=== PATIENT | female | born 1980 | race Caucasian/White ===

== ENCOUNTER → 2020-02-19 | Outpatient (CLI) | payer BC | END | disposition home or self-care (01) | LOC: RADMRIMAIN 09:40 | PROVIDERS: ATTEND Otolaryngology | DX: Z53.9 Procedure and treatment not carried out, unspecified reason (principal) ==

== ENCOUNTER → 2020-03-15 | Outpatient (CLI) | payer BC ==
--- NOTE | 2020-03-16 12:40 | CT ---
EXAMINATION TYPE: CT iac w con DATE OF EXAM: 03/15/2020 COMPARISON: 07/28/2010 CT brain INDICATION: Hearing loss right ear DLP: 150 mGycm, Automated exposure control for dose reduction was used. CONTRAST: None CT of the terminal artery canals is performed utilizing 1 mm thick sections through the skull base. FINDINGS: Internal auditory canals appear normal without erosion or expansion. Cerebellar pontine ang les appear normal. No intracanalicular masses are evident. Incus and malleus have normal orientation. Semicircular canals appear normal. Cochlea appear normal. Middle ears are clear. External auditory canals are unremarkable. There are prior uncinectomies bilaterally. There is mucosal thickening opacifying the right maxillary sinus. Some minimal mucosal thickening is within the left maxillary sinus. Couple small retention cy sts are within the sphenoid sinuses. Frontal sinuses are clear. Mastoid air cells are clear. IMPRESSIONS: 1. Normal internal auditory canals. 2. Large retention cyst within the right maxillary sinus
== END | disposition home or self-care (01) ==
LOC: RADCTMAIN 16:41
PROVIDERS: ATTEND Otolaryngology
DX: H93.3X9 Disorders of unspecified acoustic nerve (principal)
CPT/HCPCS: 70481; Q9967

== ENCOUNTER → 2021-01-22 | Outpatient (CLI) | payer BC ==
--- NOTE | 2021-01-22 12:45 | XR ---
EXAMINATION TYPE: XR Hip Bilateral Complete DATE OF EXAM: 01/22/2021 COMPARISON: NONE HISTORY: Pain TECHNIQUE: 2 views submitted of bilateral hip FINDINGS: There is no evidence of erosive change or acute fracture. Postsurgical changes involving the pelvis. Vascular calcifications noted. IMPRESSION: 1. No evidence of acute fracture or dislocation.
--- NOTE | 2021-01-22 12:46 | XR ---
EXAMINATION TYPE: XR cervical spine comp DATE OF EXAM: 01/22/2021 COMPARISON: NONE HISTORY: Pain TECHNIQUE: Four views are submitted. FINDINGS: The odontoid is intact. There are no compression deformities. The prevertebral soft tissue structur es are within normal limits. Hypertrophic and degenerative changes spine. Mild disc space narrowing C5-6 and C6-C7. IMPRESSION: 1. Mild hypertrophic and degenerative disc disease involving the lower cervical spine.
== END | disposition home or self-care (01) ==
LOC: RADXRMAIN 12:06
PROVIDERS: ATTEND Family Medicine
DX: M50.323 Other cervical disc degeneration at C6-C7 level (principal); M25.551 Pain in right hip; M25.552 Pain in left hip
CPT/HCPCS: 72050; 73521

== ENCOUNTER 2021-02-09 17:53 | Emergency (ER) | payer BC ==
[2021-02-09 18:03] VITALS: RESP 16
[2021-02-09] MEDS ORDERED: ONDANSETRON 4 MG/2 ML VIAL IVP STA (18:17)
[2021-02-09] MEDS ORDERED: SODIUM CHLORIDE 0.9% 1,000 ML IV ONE (18:17)
[2021-02-09 19:08] LABS: Basophils # (A) 0.1 k/uL (0-0.2); Basophils % (A) 0 %; Eosinophils # (A) 0.1 k/uL (0-0.7); Eosinophils % (A) 1 %; HCT 44.2 % (34.0-46.0); HGB 14.9 gm/dL (11.4-16.0); Lymphocytes # (A) 1.4 k/uL (1.0-4.8); Lymphocytes % (A) 9 %; MCH 32.1 pg (25.0-35.0); MCHC 33.7 g/dL (31.0-37.0); MCV 95.1 fL (80.0-100.0); Mean Platelet Volume 7.2; Monocytes # (A) 0.6 k/uL (0-1.0); Monocytes % (A) 4 %; Neutrophils # (A) 13.5 k/uL (1.3-7.7); Neutrophils % (A) 86 %; Platelet Count 257 k/uL (150-450); RBC 4.64 m/uL (3.80-5.40); RDW 12.9 % (11.5-15.5); WBC 15.7 k/uL (3.8-10.6)
--- NOTE | 2021-02-09 19:09 | ED ---
Nausea/Vomiting/Diarrhea HPI - General Chief complaint: Nausea/Vomiting/Diarrhea Stated complaint: nausea/vomiting/dizzy Time Seen by Provider: 02/09/21 18:08 Source: patient Mode of arrival: wheelchair Limitations: no limitations - History of Present Illness Initial comments: This patient is a 40-year-old woman who presents with the acute onset of nausea, vomiting, and vertigo symptoms. She states that this all started within the past hour to 2. She has had multiple episodes of vomiting, no blood or coffee- ground emesis. She had similar episode previously and was told that she had vertigo. MD complaint: nausea, vomiting Onset/Timin -: hour(s) Description of Vomiting: food contents Associated Abdominal Pain: No Radiation: none Consistency: constant Improves with: none Worsens with: none Associated Symptoms: nausea/vomiting (Vertigo), other - Related Data Previous Rx's Medication Instructions Recorded Meclizine [Antivert] 25 mg PO TID PRN #15 tab 02/09/21 Ondansetron Odt [Zofran ODT] 4 mg PO Q8HR PRN #10 tab 02/09/21 Allergies Allergy/AdvReac Type Severity Reaction Status Date / Time No Known Allergies Allergy Verified 02/09/21 18:09 Review of Systems ROS Statement: Those systems with pertinent positive or pertinent negative responses have been documented in the HPI. ROS Other: All systems not noted in ROS Statement are negative. Constitutional: Denies: fever, chills, weakness Eyes: Denies: eye pain, vision change ENT: Denies: ear pain Respiratory: Denies: cough, dyspnea Cardiovascular: Denies: chest pain, palpitations, edema Gastrointestinal: Reports: nausea, vomiting. Denies: abdominal pain, diarrhea, constipation, hematemesis Genitourinary: Denies: dysuria, hematuria Musculoskeletal: Denies: back pain Skin: Denies: rash Neurological: Reports: vertigo. Denies: headache, weakness, numbness Past Medical History Past Medical History: Thyroid Disorder History of Any Multi-Drug Resistant Organisms: None Reported Past Surgical History: No Surgical Hx Reported Smoking Status: Current every day smoker Past Alcohol Use History: Occasional Past Drug Use History: None Reported General Exam Limitations: no limitations General appearance: alert, in no apparent distress Head exam: Present: atraumatic, normocephalic Eye exam: Present: normal appearance, PERRL, EOMI. Absent: scleral icterus, conjunctival injection ENT exam: Present: normal oropharynx Neck exam: Present: normal inspection Respiratory exam: Present: normal lung sounds bilaterally. Absent: respiratory distress, wheezes, rales, rhonchi, stridor Cardiovascular Exam: Present: regular rate, normal rhythm, normal heart sounds. Absent: systolic murmur, diastolic murmur, rubs, gallop GI/Abdominal exam: Present: soft. Absent: distended, tenderness, guarding, rebound, rigid, mass, pulsatile mass, hernia Extremities exam: Present: normal inspection, normal capillary refill. Absent: pedal edema, calf tenderness Back exam: Present: normal inspection. Absent: CVA tenderness (R), CVA tenderness (L) Neurological exam: Present: alert, oriented X3. Absent: motor sensory deficit Skin exam: Present: warm, dry, intact, normal color. Absent: rash Course Vital Signs 02/09/21 17:58 Temperature 98.3 F Pulse Rate 74 Respiratory 16 Rate Blood Pressure 151/94 O2 Sat by Pulse 99 Oximetry Medical Decision Making - Lab Data Result diagrams: 02/09/21 18:56 02/09/21 18:56 Lab Results 02/09/21 02/09/21 02/09/21 Range/Units 18:56 18:56 18:56 WBC 15.7 H (3.8-10.6) k/uL RBC 4.64 (3.80-5.40) m/uL Hgb 14.9 (11.4-16.0) gm/dL Hct 44.2 (34.0-46.0) % MCV 95.1 (80.0-100.0) fL MCH 32.1 (25.0-35.0) pg MCHC 33.7 (31.0-37.0) g/dL RDW 12.9 (11.5-15.5) % Plt Count 257 (150-450) k/uL MPV 7.2 Neutrophils % 86 % Lymphocytes % 9 % Monocytes % 4 % Eosinophils % 1 % Basophils % 0 % Neutrophils # 13.5 H (1.3-7.7) k/uL Lymphocytes # 1.4 (1.0-4.8) k/uL Monocytes # 0.6 (0-1.0) k/uL Eosinophils # 0.1 (0-0.7) k/uL Basophils # 0.1 (0-0.2) k/uL Sodium (137-145) mmol/L Potassium (3.5-5.1) mmol/L Chloride (98-107) mmol/L Carbon Dioxide (22-30) mmol/L Anion Gap mmol/L BUN (7-17) mg/dL Creatinine (0.52-1.04) mg/dL Est GFR (CKD-EPI)AfAm (>60 ml/min/1.73 sqM) Est GFR (CKD-EPI)NonAf (>60 ml/min/1.73 sqM) Glucose (74-99) mg/dL Calcium (8.4-10.2) mg/dL Total Bilirubin (0.2-1.3) mg/dL AST (14-36) U/L ALT (4-34) U/L Alkaline Phosphatase (38-126) U/L Total Protein (6.3-8.2) g/dL Albumin (3.5-5.0) g/dL Urine Color Yellow Urine Appearance Clear (Clear) Urine pH 6.5 (5.0-8.0) Ur Specific [place] 1.020 (1.001-1.035) Urine Protein Trace H (Negative) Urine Glucose (UA) Negative (Negative) Urine Ketones Negative (Negative) Urine Blood Negative (Negative) Urine Nitrite Negative (Negative) Urine Bilirubin Negative (Negative) Urine Urobilinogen 0.2 (<2.0) mg/dL Ur Leukocyte Esterase Negative (Negative) Urine RBC 1 (0-5) /hpf Urine WBC 8 H (0-5) /hpf Ur Squamous Epith Cells 4 (0-4) /hpf Urine Bacteria Occasional H (None) /hpf Urine Mucus Rare H (None) /hpf Urine HCG, Qual Not Detected (Not Detectd) 02/09/21 Range/Units 18:56 WBC (3.8-10.6) k/uL RBC (3.80-5.40) m/uL Hgb (11.4-16.0) gm/dL Hct (34.0-46.0) % MCV (80.0-100.0) fL MCH (25.0-35.0) pg MCHC (31.0-37.0) g/dL RDW (11.5-15.5) % Plt Count (150-450) k/uL MPV Neutrophils % % Lymphocytes % % Monocytes % % Eosinophils % % Basophils % % Neutrophils # (1.3-7.7) k/uL Lymphocytes # (1.0-4.8) k/uL Monocytes # (0-1.0) k/uL Eosinophils # (0-0.7) k/uL Basophils # (0-0.2) k/uL Sodium 140 (137-145) mmol/L Potassium 4.1 (3.5-5.1) mmol/L Chloride 107 (98-107) mmol/L Carbon Dioxide 27 (22-30) mmol/L Anion Gap 6 mmol/L BUN 11 (7-17) mg/dL Creatinine 0.71 (0.52-1.04) mg/dL Est GFR (CKD-EPI)AfAm >90 (>60 ml/min/1.73 sqM) Est GFR (CKD-EPI)NonAf >90 (>60 ml/min/1.73 sqM) Glucose 93 (74-99) mg/dL Calcium 9.4 (8.4-10.2) mg/dL Total Bilirubin <0.1 L (0.2-1.3) mg/dL AST 18 (14-36) U/L ALT 13 (4-34) U/L Alkaline Phosphatase 57 (38-126) U/L Total Protein 6.6 (6.3-8.2) g/dL Albumin 4.1 (3.5-5.0) g/dL Urine Color Urine Appearance (Clear) Urine pH (5.0-8.0) Ur Specific [place] (1.001-1.035) Urine Protein (Negative) Urine Glucose (UA) (Negative) Urine Ketones (Negative) Urine Blood (Negative) Urine Nitrite (Negative) Urine Bilirubin (Negative) Urine Urobilinogen (<2.0) mg/dL Ur Leukocyte Esterase (Negative) Urine RBC (0-5) /hpf Urine WBC (0-5) /hpf Ur Squamous Epith Cells (0-4) /hpf Urine Bacteria (None) /hpf Urine Mucus (None) /hpf Urine HCG, Qual (Not Detectd) Disposition Clinical Impression: Vertigo Disposition: HOME SELF-CARE Condition: Good Instructions (If sedation given, give patient instructions): Vertigo (ED), Acute Nausea and Vomiting (ED) Prescriptions: Meclizine [Antivert] 25 mg PO TID PRN #15 tab PRN Reason: Vertigo Ondansetron Odt [Zofran ODT] 4 mg PO Q8HR PRN #10 tab PRN Reason: Nausea Is patient prescribed a controlled substance at d/c from ED?: No Referrals: Cam Barber DO [Primary Care Provider] - 1-2 days Paresh Barnse MD [STAFF PHYSICIAN] - 1-2 days
[2021-02-09 19:18] LABS: ALT 13 U/L (4-34); AST 18 U/L (14-36); African American GFR (CKD) >90 (>60 ml/min/1.73 sqM); Albumin 4.1 g/dL (3.5-5.0); Alkaline Phosphatase 57 U/L (38-126); Anion Gap 6 mmol/L; Blood Urea Nitrogen 11 mg/dL (7-17); Calcium 9.4 mg/dL (8.4-10.2); Carbon Dioxide 27 mmol/L (22-30); Chloride 107 mmol/L (98-107); Glucose 93 mg/dL (74-99); Non-African American GFR(CKD) >90 (>60 ml/min/1.73 sqM); Potassium 4.1 mmol/L (3.5-5.1); Sodium 140 mmol/L (137-145); Total Bilirubin <0.1 mg/dL (0.2-1.3); Total Protein 6.6 g/dL (6.3-8.2)
[2021-02-09 19:23] LABS: Bacteria,Urine Occasional /hpf; Mucus,Urine Rare /hpf; RBC,Urine 1 /hpf (0-5); Squamous Epithelial Cell,Urine 4 /hpf (0-4); WBC,Urine 8 /hpf (0-5)
[2021-02-09 19:42] LABS: Appearance,Urine Clear (Clear); Color,Urine Yellow
[2021-02-09 19:43] LABS: Bilirubin,Urine Negative (Negative); Blood,Urine Negative (Negative); Glucose,Urine (UA) Negative (Negative); Ketones,Urine Negative (Negative); Leukocyte Esterase,Urine Negative (Negative); Nitrite,Urine Negative (Negative); PH, Urine 6.5 (5.0-8.0); Protein,Urine Trace (Negative); Urobilinogen,Urine 0.2 mg/dL (<2.0)
[2021-02-09 20:34] VITALS: BP 124/66; PULSE 72; TEMP 97.9
== END 2021-02-09 20:42 | disposition home or self-care (01) ==
LOC: EC 17:53
DX: R42 Dizziness and giddiness (principal); R11.2 Nausea with vomiting, unspecified; F17.200 Nicotine dependence, unspecified, uncomplicated
CPT/HCPCS: 36415; 80053; 85025; 81003; 81025; 99284; 96374; J2405

== ENCOUNTER 2023-12-09 13:35 | Emergency (ER) | payer OTHER ==
--- NOTE | 2023-12-09 14:00 | ED ---
Lower Extremity Injury HPI - General Chief Complaint: Extremity Injury, Lower Stated Complaint: Right ankle pain Time Seen by Provider: 12/09/23 13:59 Source: patient, family, RN notes reviewed Mode of arrival: ambulatory Limitations: no limitations - History of Present Illness Initial Comments: Patient is a 43-year-old female presenting to the ER with a chief complaint of right ankle injury. Patient states she was walking on the stairs and accidentally tripped on a dog toy. She states that she inverted her ankle. She denies any paresthesias, other injuries, head injury. No other complaints at this time. - Related Data Previous Rx's Medication Instructions Recorded Meclizine [Antivert] 25 mg PO TID PRN #15 tab 02/09/21 Ondansetron Odt [Zofran ODT] 4 mg PO Q8HR PRN #10 tab 02/09/21 HYDROcodone/APAP 5-325MG [Elmer 5] 1 each PO Q6HR PRN #12 tab 12/09/23 Allergies Allergy/AdvReac Type Severity Reaction Status Date / Time No Known Allergies Allergy Verified 12/09/23 13:47 Review of Systems ROS Statement: Those systems with pertinent positive or pertinent negative responses have been documented in the HPI. ROS Other: All systems not noted in ROS Statement are negative. Past Medical History Past Medical History: Thyroid Disorder History of Any Multi-Drug Resistant Organisms: None Reported Past Surgical History: No Surgical Hx Reported Past Psychological History: No Psychological Hx Reported Smoking Status: Current every day smoker Past Alcohol Use History: Occasional Past Drug Use History: None Reported General Exam Limitations: no limitations General appearance: alert, in no apparent distress Head exam: Present: atraumatic, normocephalic, normal inspection Eye exam: Present: normal appearance, PERRL, EOMI. Absent: scleral icterus, conjunctival injection, periorbital swelling ENT exam: Present: normal exam, mucous membranes moist Respiratory exam: Present: normal lung sounds bilaterally. Absent: respiratory distress, wheezes, rales, rhonchi, stridor Cardiovascular Exam: Present: regular rate, normal rhythm, normal heart sounds. Absent: systolic murmur, diastolic murmur, rubs, gallop, clicks Extremities exam: Present: other (Edema to right lateral malleolus with ecchymosis. 2+ right dorsalis pedis pulse. Sensation intact. Patient has limited range of motion due to pain.) Neurological exam: Present: alert, oriented X3, CN II-XII intact Psychiatric exam: Present: normal affect, normal mood Skin exam: Present: warm, dry, intact, normal color. Absent: rash Course Vital Signs 12/09/23 13:44 Temperature 98.3 F Pulse Rate 84 Respiratory 17 Rate Blood Pressure 146/85 O2 Sat by Pulse 96 Oximetry Procedures - Orthopedic Splinting/Casting Injury #1 Side: right Lower Extremity Injury Location: ankle Lower Extremity Immobilizer: posterior splint, stirrup splint Medical Decision Making - Medical Decision Making Was pt. sent in by a medical professional or institution (, PA, [employer], urgent care, hospital, or correction...) When possible be specific @ -No Did you speak to anyone other than the patient for history (EMS, parent, family, police, friend...)? What history was obtained from this source @ -No Did you review nursing and triage notes (agree or disagree)? Why? @ -I reviewed and agree with nursing and triage notes Were old charts reviewed (outside hosp., previous admission, EMS record, old EKG, old radiological studies, urgent care reports/EKG's, correction records)? Report findings @ -No old charts were reviewed Differential Diagnosis (chest pain, altered mental status, abdominal pain women, abdominal pain men, vaginal bleeding, weakness, fever, dyspnea, syncope, headache, dizziness, GI bleed, back pain, seizure, CVA, palpatations, mental health, musculoskeletal)? @ -Differential Musculoskeletal: Muscular strain, contusion, ligament sprain, fracture, arthritis, septic arthritis, bursitis, cellulitis, muscle spasm, nerve compression, DVT, arterial occlusion, herpes zoster, electrolyte abnormality, tumor.... This is not meant to be in all inclusive list EKG interpreted by me (3pts min.). @ -None X-rays interpreted by me (1pt min.). @ -Right ankle x-ray significant for bony density adjacent to medial talar eminence concerning of avulsion fracture CT interpreted by me (1pt min.). @ -None done U/S interpreted by me (1pt. min.). @ -None done What testing was considered but not performed or refused? (CT, X-rays, U/S, labs)? Why? @ -None What meds were considered but not given or refused? Why? @ -None Did you discuss the management of the patient with other professionals (professionals i.e. , PA, [employer], lab, RT, psych nurse, foster care social worker, vamp cut out worker, teacher, engineering officer, pillowcase cutter)? Give summary @ -No Was smoking cessation discussed for >3mins.? @ -No Was critical care preformed (if so, how long)? @ -No Were there social determinants of health that impacted care today? How? (Homelessness, low income, unemployed, alcoholism, drug addiction, transportation, low edu. Level, literacy, decrease access to med. care, half-way, rehab)? @ -No Was there de-escalation of care discussed even if they declined (Discuss DNR or withdrawal of care, Hospice)? DNR status @ -No What co-morbidities impacted this encounter? (DM, HTN, Smoking, COPD, CAD, Cancer, CVA, ARF, Chemo, Hep., AIDS, mental health diagnosis, sleep apnea, morbid obesity)? @ -None Was patient admitted / discharged? Hospital course, mention meds given and route, prescriptions, significant lab abnormalities, going to OR and other pertinent info. @ -Discharge. Patient is a 43-year-old female presented to the ER with a chief complaint of right ankle injury. History and physical exam completed. Vitals stable. Patient no signs of acute distress and nontoxic-appearing. Right lower extremity neurovascular intact. Edema and ecchymosis to right lateral malleolus. X-rays concerning of avulsion fracture. Patient placed in a posterior and stirrup splint. IM Toradol in the ER. Results discussed with patient, all questions answered. Elmer prescribed. Advise close follow-up with orthopedics. Referral given. Return parameters discussed. Patient discharged stable condition with follow-up to orthopedics. Patient expressed understanding and agreement with care plan. Case discussed with ED attending, Dr. Wood. Undiagnosed new problem with uncertain prognosis? @ -No Drug Therapy requiring intensive monitoring for toxicity (Heparin, Nitro, Insulin, Cardizem)? @ -No Were any procedures done? @ -Yes Diagnosis/symptom? @ -Avulsion fracture Acute, or Chronic, or Acute on Chronic? @ -Acute Uncomplicated (without systemic symptoms) or Complicated (systemic symptoms)? @ -Uncomplicated Side effects of treatment? @ -No Exacerbation, Progression, or Severe Exacerbation? @ -No Poses a threat to life or bodily function? How? (Chest pain, [place], [place], pneumonia, PE, COPD, DKA, ARF, appy, cholecystitis, CVA, Diverticulitis, Homicidal, Suicidal, threat to staff... and all critical care pts) @ -No - Radiology Data Radiology results: report reviewed, image reviewed Disposition Clinical Impression: Avulsion fracture of ankle Disposition: HOME SELF-CARE Condition: Stable Instructions (If sedation given, give patient instructions): Avulsion Fracture (ED) Additional Instructions: Please intermix Motrin with Elmer for pain control. Remain nonweightbearing. Follow-up with orthopedics. Referral given. Return to the ER for any new or worsening concerns. Prescriptions: HYDROcodone/APAP 5-325MG [Elmer 5] 1 each PO Q6HR PRN #12 tab PRN Reason: Pain Is patient prescribed a controlled substance at d/c from ED?: No Referrals: Cam Barber DO [Primary Care Provider] - 1-2 days René Avina MD [Medical Doctor] - 1-2 days Reid Bowen DO [Doctor of Osteopathic Medicine] - 1-2 days Time of Disposition: 14:51
[2023-12-09] MEDS: KETOROLAC 15 MG/ML 1 ML VIAL IM STA (14:08)
--- NOTE | 2023-12-09 14:25 | XR ---
EXAMINATION TYPE: XR ankle complete RT DATE OF EXAM: 12/09/2023 COMPARISON: NONE HISTORY: Pain FINDINGS: Three views of the ankle demonstrate the ankle mortise to be intact and symmetric. The joint spaces are preserved. The tiny bony density seen adjacent medial talar eminence. Soft tissue edema laterall y. IMPRESSION: 1. A tiny bony density adjacent to the medial talar eminence of indeterminate age. Recommend correlat ion with point tenderness to assess for acute avulsion fracture.
[2023-12-09 15:30] VITALS: BP 182/80; PULSE 78; RESP 18; TEMP 97.6
== END 2023-12-09 15:13 | disposition home or self-care (01) ==
LOC: EC 13:35
DX: S82.891A Other fracture of right lower leg, initial encounter for closed fracture (principal); F17.200 Nicotine dependence, unspecified, uncomplicated; X50.1XXA Overexertion from prolonged static or awkward postures, initial encounter; Y92.009 Unspecified place in unspecified non-institutional (private) residence as the place of occurrence of the external cause; Y93.01 Activity, walking, marching and hiking
CPT/HCPCS: 73610; 29515; 99283; 96372; J1885

== ENCOUNTER → 2025-03-28 | Outpatient (CLI) | payer OTHER ==
--- NOTE | 2025-03-29 08:11 | MM ---
Reason for Exam: Screening (asymptomatic). Baseline mammogram. Patient History: Menarche at age 11. First Full-Term at age 23. Patient has history of breast feeding. Patient used Hormonal Contraceptives for 5 years. Last menstrual period: 03/28/2025 Risk Values: Elvira 5 year model risk: 0.8%. NCI Lifetime model risk: 9.5%. Prior Study Comparison: Patient's first Mammogram. Tissue Density: There are scattered areas of fibroglandular density. Findings: Analyzed By CAD. There is no suspicious group of microcalcifications or new suspicious mass in either breast. Overall Assessment: Benign, BI-RAD 2 Management: Screening Mammogram of both breasts in 1 year. . Patient should continue monthly self-breast exams. A clinical breast exam by your physician is recommended on an annual basis. This exam should not preclude additional follow-up of suspicious palpable abnormalities. Note on Elvira scores and lifetime risk: 1. A Elvira score greater than 3% is considered moderate risk. If this is the case, consider specialist referral to assess eligibility for a risk reducing agent. 2. If overall lifetime risk for the development of breast cancer is 20% or higher, the patient may qualify for future screening with alternating mammogram and breast MRI. [facility], , 03/29/2025 8:09 AM. Electronically signed and approved by: Mario Alberto Montenegro M.D. Radiologis
== END | disposition home or self-care (01) ==
LOC: RADMAMWWP 16:02
PROVIDERS: ATTEND Family Medicine
DX: Z12.31 Encounter for screening mammogram for malignant neoplasm of breast (principal); R92.323 Mammographic fibroglandular density, bilateral breasts; Z92.0 Personal history of contraception
CPT/HCPCS: 77063; 77067